=== PATIENT | female | born 1965 | race Two or more races ===

== ENCOUNTER 2017-08-12 11:53 | Outpatient (CLI) | payer OTHER | END 2017-08-12 17:17 | disposition home or self-care (01) | LOC: RAD 501 11:53 | DX: M12.9 Arthropathy, unspecified (principal); M19.90 Unspecified osteoarthritis, unspecified site ==

== ENCOUNTER 2017-12-16 12:12 | Emergency (ER) | payer OTHER ==
[~2017-12-16] VITALS: Ht 170.2 cm; Wt 54.4 kg
== END 2017-12-16 16:33 | disposition home or self-care (01) ==
LOC: ER 12:12
DX: R55 Syncope and collapse (principal)